=== PATIENT | female | born 1955 | race Caucasian/White ===

== ENCOUNTER 2017-02-15 13:32 | Emergency (ER) | payer OTHER ==
[~2017-02-15] VITALS: Ht 152.4 cm; Wt 73.5 kg
[2017-02-15 13:36] VITALS: Ht 152.4 cm; Wt 73.5 kg
[2017-02-15] MEDS ORDERED: KETOROLAC 30 MG INJ IM STA (14:11)
[2017-02-15] MEDS ORDERED: FAMO-96 PO (14:41)
[2017-02-15] MEDS ORDERED: NAPR-260 PO (14:41)
--- NOTE | 2017-02-15 14:49 | ERD ---
ER Documentation Chief Complaint Date/Time DATE: 02/15/17 TIME: 14:46 Chief Complaint Generalized body pain x 3 days HPI This is a 61-year-old female presents to the ER with generalized body pain that started 3 days ago. Patient states she has a history of arthritis, and for the last 3 days she has been taking Tylenol, however it has not worked. She has Clawson and tramadol at home, however she does not like to take it because it makes her very sleepy and dizzy. She denies any fevers or chills. She denies any trauma. She denies any cough or cold symptoms. Is requesting naproxen, however is worried about her GERD. ROS 12 point review of systems was done, all negative except per HPI. Medications Home Meds Active Scripts Famotidine* (Pepcid*) 20 Mg Tablet, 20 MG PO BID, #30 TAB Prov:CANDY,CATIE C 02/15/17 Naproxen* (Naprosyn*) 500 Mg Tablet, 500 MG PO BID Y for PAIN AND/OR INFLAMMATION, #30 TAB Prov:CANDYCATIE C 02/15/17 Allergies Allergies: Coded Allergies: No Known Allergy (Unverified , 02/15/17) PMhx/Soc History of Surgery: No Anesthesia Reaction: No Hx Neurological Disorder: No Hx Respiratory Disorders: No Hx Cardiac Disorders: No Hx Psychiatric Problems: No Hx Miscellaneous Medical Probl: Yes (ARTHRITIS ) Hx Alcohol Use: No Hx Substance Use: No Hx Tobacco Use: No Smoking Status: Never smoker Physical Exam Vitals Vital Signs Date Time Temp Pulse Resp B/P Pulse Ox O2 Delivery O2 Flow Rate FiO2 02/15/17 13:36 99.3 83 18 118/59 99 Physical Exam GENERAL: The patient is well developed and appropriate for usual state of health , in no apparent distress. HEENT: Atraumatic CHEST: Clear to auscultation bilaterally. There are no rales, wheezes or rhonchi. HEART: Regular rate and rhythm. No murmurs, clicks, rubs or gallops. EXTREMITIES: Equal pulses bilaterally. There is no peripheral clubbing, cyanosis or edema. No focal swelling or erythema. Full range of motion. Grossly neurovascularly intact. NEURO: Alert and oriented. Cranial nerves II through XII are intact. Motor strength in all 4 extremities with 5/5 strength. Sensation grossly intact. Normal speech and gait. SKIN: There is no apparent rash or petechia. The skin is warm and dry. Results 24 hrs Current Medications Medications (Trade) Dose Ordered Sig/Chandin Route PRN Reason Start Time Stop Time Status Last Admin Dose Admin Ketorolac Tromethamine (Toradol) 30 mg ONCE STAT IM 02/15/17 14:11 02/15/17 14:12 DC Procedures/MDM This is a 61-year-old female that presents to the ER with a past medical history of arthritis complaining of generalized body pain. At this time patient has not had any trauma afebrile and well-appearing. Patient was given a shot of Toradol in the ER and stated she felt significantly better. She will be sent home with naproxen and with famotidine. Patient is to follow-up with her primary care doctor within 1-2 days or return to ER sooner if symptoms worsen. My medical decision making was shared with the patient she understands and agrees with plan. Departure Diagnosis: Primary Impression: Total body pain Condition: Stable Patient Instructions: What Is Arthritis? Additional Instructions: Llame al doctor KIMBERLYN y lee aminata FILI PARA DENTRO DE 1-2 SEGOVIA.Dgale a la secretaria que nosotros le instruimos hacer esta fili.Avise o llame si anton condicin se empeora antes de la fili. Regresa aqui si peor o no mejor. CATIE GUPTA Feb 15, 2017 14:49
== END 2017-02-15 15:11 | disposition home or self-care (01) ==
LOC: FTE 13:32
DX: R52 Pain, unspecified (principal)
CPT/HCPCS: 96372; 99284; J1885